=== PATIENT | male | born 1990 | race Caucasian/White ===

== ENCOUNTER 2017-06-23 19:52 | Observation (INO) ==
[2017-06-23] MEDS ORDERED: Ondansetron 4 MG/2 ML VIAL IVP ONE (21:01)
--- NOTE | 2017-06-23 21:07 | Emergency Department Note ---
Disposition Clinical Impression: Right lower quadrant abdominal pain Disposition: Admitted As Inpatient Condition: Good Time of Disposition: 23:45 Abdominal Pain HPI - General Chief Complaint: ED Abdominal Pain Stated Complaint: RUQ pain Time Seen by Provider: 06/23/17 20:48 Source: patient Nursing Notes Reviewed: Yes Vital Signs Reviewed: Yes - History of Present Illness HPI Narrative: 26-year-old male persist emergency department with a complaint of right lower quadrant abdominal pain. Pain started about 24 hours prior to arrival in the mid abdomen and periumbilical region and was associated with several episodes of nausea and vomiting. He did have a subjective fever last evening. No diarrhea. No melena, hematemesis, or hematochezia. No hematuria or dysuria. No increased urinary frequency. No flank pain. No prior abdominal surgeries. The pain has been persistent all day today but has migrated more to the right lower quadrant. Pt Subjective Complaint: abdominal pain Onset (ago): day(s) (1) Consistency: constant, Worsening Location: RLQ Pain Severity: moderate Pain Scale: 4 Quality: aching, dull Radiation: none Migration to: RLQ Improves with: nothing Worsens with: movement Associated symptoms: Reports: nausea, vomiting, fever (Subjective fever last evening but none today.). Denies: diarrhea, chills, constipation, dysuria, hematemesis, hematochezia, melena, hematuria, anorexia, syncope - Related Data Home Medications Medication Instructions Recorded Confirmed No Known Home Drugs 06/23/17 06/23/17 Allergies Allergy/AdvReac Type Severity Reaction Status Date / Time No Known Allergies Allergy Verified 06/23/17 19:54 All systems ED: reviewed and negative except as stated. Constitutional: Reports: fever Cardiovascular: Denies: chest pain Respiratory: Denies: cough, dyspnea Gastrointestinal: Reports: abdominal pain, nausea, vomiting. Denies: diarrhea, constipation, hematemesis, melena, hematochezia Genitourinary: Denies: dysuria, frequency, hematuria Musculoskeletal: Denies: back pain Abdominal Pain PMH - Past Medical History Medical history: Reports: no medical history Male Surgical History: Reports: no surgical history - Social History Smoking status: Current every day smoker Alcohol use: Reports: none Drug use: Reports: none Physical Exam - General Limitations: no limitations General appearance: alert, in no apparent distress - Head Head exam: atraumatic, normocephalic, normal inspection - Eye Eye exam: Present: normal appearance, PERRL, EOMI. Absent: scleral icterus, conjunctival injection - ENT ENT exam: normal exam, normal oropharynx, mucous membranes moist, normal external ear exam - Neck Neck exam: Present: normal inspection, full ROM, trachea midline. Absent: tenderness, meningismus, lymphadenopathy - Chest Chest inspection: Present: normal inspection, symmetric chest wall rise. Absent : tenderness - Respiratory Respiratory exam: Present: normal lung sounds bilaterally. Absent: respiratory distress, wheezes, stridor, accessory muscle use - Cardiovascular Cardiovascular exam: Present: regular rate, normal rhythm, normal heart sounds - Abdominal Exam Abdominal exam: Present: soft, tenderness, guarding, rebound, diminished bowel sounds. Absent: distention, rigidity Abdominal tenderness: Present: RLQ, moderate - Extremities Exam Extremities exam: Present: normal inspection, full ROM. Absent: tenderness, pedal edema - Back Exam Back exam: Present: normal inspection, full ROM. Absent: tenderness, CVA tenderness (R), CVA tenderness (L) - Neurological Exam Neurological exam: Present: alert, oriented X3. Absent: motor sensory deficit - Psychiatric Psychiatric exam: Present: normal affect, normal mood - Skin Skin exam: Present: warm, dry, intact, normal color. Absent: cyanosis, diaphoresis Course Course Narrative: 26-year-old male presents with a 24-hour history of abdominal pain which started in the mid abdomen and periumbilical area and now has migrated to the right lower quadrant. Initially associated with nausea and vomiting which seems to have resolved. No diarrhea. No urinary symptoms. Subjective fever last evening but none today. We will workup for appendicitis with lab work and a CT of abdomen and pelvis with IV contrast. - Consultations Consultation #1: Discussed case with the surgeon crutching contractor, Dr. Oglesby. She will admit the patient for observation. Time: 23:30 Vital Signs Temperature 98.1 F 06/23/17 19:54 Pulse Rate 78 06/23/17 19:54 Respiratory Rate 14 06/23/17 19:54 Blood Pressure 132/87 06/23/17 19:54 O2 Sat by Pulse Oximetry 97 06/23/17 19:54 Temperature 98.1 F 06/23/17 19:54 Pulse Rate 78 06/23/17 19:54 Respiratory Rate 14 06/23/17 19:54 Blood Pressure 132/87 06/23/17 19:54 O2 Sat by Pulse Oximetry 97 06/23/17 19:54 Oxygen Delivery Oxygen Delivery Room Air Abdominal Pain - Lab Data Lab results reviewed: Yes I reviewed the patient's lab results. Result diagrams: 06/23/17 21:34 06/23/17 21:34 Lab Results 06/23/17 06/23/17 06/23/17 Range/Units 21:34 21:34 21:34 WBC 8.9 (4.3-11.1) K/mcL RBC 4.85 (4.19-5.50) M/mcL Hgb 14.6 (12.9-16.9) g/dL Hct 43.6 (37.5-50.1) % MCV 89.9 (83.0-100.0) fL MCH 30.1 (28.0-33.3) pg MCHC 33.5 (31.6-35.5) g/dL RDW 11.7 (11.5-14.5) % Plt Count 248 (140-400) K/mcL MPV 9.3 L (9.4-12.4) fL Immature Gran % 0.2 (0-4) % Seg Neutrophils % 58.5 % Lymphocytes % 29.9 % Monocytes % 8.6 % Eosinophils % 2.1 % Basophils % 0.7 % Neutrophils # 5.2 (1.6-8.9) K/mcL Lymphocytes # 2.7 (0.6-4.6) K/mcL Monocytes # 0.8 (0.0-1.3) K/mcL Eosinophils # 0.2 (0.0-0.6) K/mcL Basophils # 0.1 (0.0-0.2) K/mcL Sodium 141 (136-145) mEq/L Potassium 3.5 (3.5-4.5) mEq/L Chloride 105 (98-109) mEq/L Carbon Dioxide 29 (19-29) mEq/L BUN 10 (8-26) mg/dL Creatinine 1.01 (0.72-1.25) mg/dL Est GFR ( Amer) > 60 (> 60) Est GFR (Non-Af Amer) > 60 (> 60) BUN/Creatinine Ratio 10 (6-26) Glucose 93 (70-99) mg/dL Calculated Osmolality 291 (280-300) Calcium 9.7 (8.6-10.8) mg/dL Total Bilirubin 0.6 (0.2-1.2) mg/dL Direct Bilirubin 0.2 (0.0-0.5) mg/dL Indirect Bilirubin 0.4 (0.0-1.2) mg/dL AST 27 (5-34) Units/L ALT 31 (0-55) Units/L Alkaline Phosphatase 63 (38-126) Units/L Serum Total Protein 7.6 (6.0-8.3) g/dL Albumin 4.3 (3.5-5.0) g/dL Globulin 3.3 (2.4-3.5) g/dL Albumin/Globulin Ratio 1.3 (1.1-2.2) Lipase 22 (8-78) Units/L Urine Color Yellow (Yellow) Urine Clarity Cloudy A (Clear) Urine pH 6.5 (5.0-8.0) pH Units Ur Specific [place] 1.029 H (1.010-1.025) Urine Protein Negative (Neg-Trace) mg/dL Urine Glucose (UA) Normal (Normal) mg/dL Urine Ketones Trace H (Negative) mg/dL Urine Blood Negative (Negative) Urine Nitrite Negative (Negative) Urine Bilirubin Small H (Negative) Urine Urobilinogen 2.0 H (Normal) mg/dL Ur Leukocyte Esterase Negative (Negative) Urine Microscopic RBC 0-3 (0-3) per hpf Urine Microscopic WBC 0-3 (0-3) per hpf Ur Squamous Epith Cells Few (None-Few) per lpf Urine Bacteria None Seen (None-Few) per hpf Hyaline Casts None Seen (None-Few) per lpf Ur Culture Indicated? NO (NO) - Radiology Data Radiology results reviewed: Yes I reviewed the patient's radiology results. Abdomen/Pelvis CT 06/23/17 21:03 IMPRESSION: Appendix mildly dilated without significant surrounding inflammatory change or edema. Early acute appendicitis not excluded given the history. D/ / Shin Aldrich MD / Shin Aldrich MD Interpreting Provider: Shin Aldrich MD
[2017-06-23] MEDS: 0.9 % Sodium Chloride 1,000 ML IVC ONE ×2 (21:13→21:43)
[2017-06-23 21:44] LABS: Basophils # 0.1 K/mcL (0.0-0.2); Basophils % 0.7 %; Eosinophils # 0.2 K/mcL (0.0-0.6); Eosinophils % 2.1 %; Hematocrit 43.6 % (37.5-50.1); Hemoglobin 14.6 g/dL (12.9-16.9); Immature Granulocytes % 0.2 % (0-4); Lymphocytes # 2.7 K/mcL (0.6-4.6); Lymphocytes % 29.9 %; Mean Corpuscular HGB Conc 33.5 g/dL (31.6-35.5); Mean Corpuscular Hemoglobin 30.1 pg (28.0-33.3); Mean Corpuscular Volume 89.9 fL (83.0-100.0); Mean Platelet Volume 9.3 fL (9.4-12.4); Monocytes # 0.8 K/mcL (0.0-1.3); Monocytes % 8.6 %; Neutrophils # 5.2 K/mcL (1.6-8.9); Platelet Count 248 K/mcL (140-400); Red Blood Count 4.85 M/mcL (4.19-5.50); Red Cell Distribution Width 11.7 % (11.5-14.5); Segmented Neutrophils % 58.5 %
[2017-06-23 21:49] LABS: Bilirubin,Urine Small (Negative); Blood,Urine Negative (Negative); Clarity,Urine Cloudy (Clear); Color,Urine Yellow (Yellow); Glucose,Urine (UA) Normal (Normal); Ketones,Urine Trace mg/dL (Negative); Leukocyte Esterase,Urine Negative (Negative); Nitrite,Urine Negative (Negative); PH,Urine 6.5 pH Units (5.0-8.0); Protein,Urine Negative (Neg-Trace); Specific Gravity,Urine 1.029 (1.010-1.025)
[2017-06-23 21:51] LABS: Bacteria,Urine None Seen per hpf (None-Few); Hyaline Casts,Urine None Seen per lpf (None-Few); RBC,Urine 0-3 per hpf (0-3); Squamous Epithelial Cell,Urine Few per lpf (None-Few); WBC,Urine 0-3 per hpf (0-3)
[2017-06-23 21:58] LABS: Alanine Aminotransferase 31 Units/L (0-55); Albumin 4.3 g/dL (3.5-5.0); Albumin/Globulin Ratio 1.3 (1.1-2.2); Alkaline Phosphatase 63 Units/L (38-126); Aspartate Amino Transferase 27 Units/L (5-34); BUN/Creatinine Ratio 10 (6-26); Bilirubin,Direct 0.2 mg/dL (0.0-0.5); Bilirubin,Indirect 0.4 mg/dL (0.0-1.2); Bilirubin,Total 0.6 mg/dL (0.2-1.2); Blood Urea Nitrogen 10 mg/dL (8-26); Calcium 9.7 mg/dL (8.6-10.8); Carbon Dioxide 29 mEq/L (19-29); Chloride 105 mEq/L (98-109); Globulin 3.3 g/dL (2.4-3.5); Glucose 93 mg/dL (70-99); Lipase 22 Units/L (8-78); Osmolality,Calculated 291 (280-300); Potassium 3.5 mEq/L (3.5-4.5); Sodium 141 mEq/L (136-145); Total Protein 7.6 g/dL (6.0-8.3); eGFR For African Americans > 60 (> 60); eGFR For Non-African Americans > 60 (> 60)
[2017-06-23] MEDS ORDERED: *HR* Promethazine 25 MG/ML VIAL IVP PRN (23:38)
[2017-06-23] MEDS ORDERED: Naloxone 0.4 MG/ML INJ IVP PRN (23:38)
[2017-06-23] MEDS ORDERED: Ketorolac 15 MG/ML VIAL IVP PRN (23:38)
[2017-06-23] MEDS ORDERED: Ondansetron 4 MG/2 ML VIAL IVP PRN (23:38)
[2017-06-23] MEDS ORDERED: 0.9 % Sodium Chloride 1,000 ML IVC SCH (23:45)
[2017-06-24 05:47] LABS: Basophils # 0.1 K/mcL (0.0-0.2); Basophils % 0.7 %; Eosinophils # 0.2 K/mcL (0.0-0.6); Eosinophils % 3.1 %; Hematocrit 40.9 % (37.5-50.1); Immature Granulocytes % 0.3 % (0-4); Lymphocytes # 3.1 K/mcL (0.6-4.6); Lymphocytes % 45.8 %; Mean Corpuscular HGB Conc 34.2 g/dL (31.6-35.5); Mean Corpuscular Hemoglobin 31.2 pg (28.0-33.3); Mean Corpuscular Volume 91.1 fL (83.0-100.0); Mean Platelet Volume 9.6 fL (9.4-12.4); Monocytes # 0.7 K/mcL (0.0-1.3); Monocytes % 10.4 %; Neutrophils # 2.7 K/mcL (1.6-8.9); Platelet Count 216 K/mcL (140-400); Red Blood Count 4.49 M/mcL (4.19-5.50); Red Cell Distribution Width 11.7 % (11.5-14.5); Segmented Neutrophils % 39.7 %
[2017-06-24 05:57] LABS: BUN/Creatinine Ratio 12 (6-26); Blood Urea Nitrogen 10 mg/dL (8-26); Calcium 8.9 mg/dL (8.6-10.8); Carbon Dioxide 26 mEq/L (19-29); Chloride 109 mEq/L (98-109); Glucose 97 mg/dL (70-99); Osmolality,Calculated 291 (280-300); Potassium 4.1 mEq/L (3.5-4.5); Sodium 141 mEq/L (136-145); eGFR For African Americans > 60 (> 60); eGFR For Non-African Americans > 60 (> 60)
--- NOTE | 2017-06-24 10:07 | General Surg History&Physical ---
<Deanne Peña - Last Filed: 06/24/17 10:03> Date of Encounter: 06/24/17 Time of Encounter: 09:15 Assessment and Plan (1) Right lower quadrant abdominal pain Status: Acute The assessment and plan as outlined above was discussed with the patient and/or family members who expressed understanding and agreement. All questions were answered. NPO IV fluids Supportive care/pain control Serial abdominal exams and observation (2) Tobacco abuse Status: Acute The assessment and plan as outlined above was discussed with the patient and/or family members who expressed understanding and agreement. All questions were answered. Smoking cessation education Nicotine patch (3) DVT prophylaxis Status: Acute The assessment and plan as outlined above was discussed with the patient and/or family members who expressed understanding and agreement. All questions were answered. Ambulate hallways TID History of Present Illness Chief complaint: Right sided abdominal pain HPI: Mr. Samuel is a 26 year old male who presented to the hospital last evening with a 24-hour history of right-sided abdominal discomfort. He states that the pain started after having dinner on Friday evening. He reports that initially was a pain across his entire abdomen but over time the pain has settled in the right side. He reports that it was initially sharp and stabbing pain but now is more of a dull aching pain. He denies any aggravating or alleviating factors. He has never experienced pain like this in the past. He admits to nausea and dry heaves. He has a poor appetite. He states that he has his last bowel movement on Friday and that it was normal. Denies any hematemesis, coffee -ground emesis, melena or hematochezia. He admits to chills but denies any fevers. Denies any shortness of breath or chest pain. Denies any difficulty with urination. Past Med Surg Social Fam HX - Past Medical History Source: patient, old records reviewed Medical history: other (seasonal allergies) Psychiatric history: no psych history - Past Surgical History Surgical History: other (Tonsillectomy and adenoidectomy, ear tubes as a child) - Social History Smoking Status: Current every day smoker Packs per day: 2 Smokeless Tobacco Status: No Alcohol use: none Drug use: none Current living situation: Home - Independent Activity Level: Independent ambulation - Family History Mother Living Status: Still Living Hx Family Cardiac Disorders: Yes ([place]) Father History Unknown: Yes Medications and Allergies Loratadine [Allergy Relief] 10 mg PO DAILY 06/24/17 [History] Allergies No Known Allergies Allergy (Verified 06/23/17 19:54) Review of Systems All systems PM: reviewed and no additional remarkable complaints except as stated (in the HPI) All systems PM: A 10-system review of systems was performed and is negative for pertinent findings except as documented above in the HPI. General Surgery Exam Initial Vital Signs Temp Pulse Resp BP Pulse Ox 98.1 F 78 14 132/87 97 06/23/17 19:54 06/23/17 19:54 06/23/17 19:54 06/23/17 19:54 06/23/17 19:54 - General physical appearance well developed, well nourished, no distress - Eyes normal ocular movement - ENT normal mucosa, atraumatic, normocephalic - Neck trachea midline - Respiratory normal respiratory effort, clear to auscultation - Cardiovascular Cardiovascular exam: Present: RRR - Abdomen Abdomen general surgery: Present: bowel sounds present, soft, tender Abdominal Tenderness: Present: RLQ, suprapubic - Integumentary Integumentary general surgery: Present: warm and dry - Neurologic Present: CN 2-12 grossly intact - Psychiatric Psychiatric general surgery: Present: appropriate, oriented to person, oriented to place, oriented to time, speech is normal, memory intact Results - Labs 06/24/17 05:23 06/24/17 05:23 Abnormal lab results POC Glucose 93 (58-89) H 06/24/17 05:20 Urine Clarity Cloudy (Clear) A 06/23/17 21:34 Ur Specific [place] 1.029 (1.010-1.025) H 06/23/17 21:34 Urine Ketones Trace mg/dL (Negative) H 06/23/17 21:34 Urine Bilirubin Small (Negative) H 06/23/17 21:34 Urine Urobilinogen 2.0 mg/dL (Normal) H 06/23/17 21:34 Diabetes panel 06/24/17 Range/Units 05:23 Sodium 141 (136-145) mEq/L Potassium 4.1 (3.5-4.5) mEq/L Chloride 109 (98-109) mEq/L Carbon Dioxide 26 (19-29) mEq/L BUN 10 (8-26) mg/dL Creatinine 0.83 (0.72-1.25) mg/dL Glucose 97 (70-99) mg/dL Calcium 8.9 (8.6-10.8) mg/dL Calcium panel 06/24/17 Range/Units 05:23 Calcium 8.9 (8.6-10.8) mg/dL Pituitary panel 06/24/17 Range/Units 05:23 Sodium 141 (136-145) mEq/L Potassium 4.1 (3.5-4.5) mEq/L Chloride 109 (98-109) mEq/L Carbon Dioxide 26 (19-29) mEq/L BUN 10 (8-26) mg/dL Creatinine 0.83 (0.72-1.25) mg/dL Glucose 97 (70-99) mg/dL Calcium 8.9 (8.6-10.8) mg/dL Adrenal panel 06/24/17 Range/Units 05:23 Sodium 141 (136-145) mEq/L Potassium 4.1 (3.5-4.5) mEq/L Chloride 109 (98-109) mEq/L Carbon Dioxide 26 (19-29) mEq/L BUN 10 (8-26) mg/dL Creatinine 0.83 (0.72-1.25) mg/dL Glucose 97 (70-99) mg/dL Calcium 8.9 (8.6-10.8) mg/dL All other labs normal. - Imaging CT scan - abdomen: report reviewed CT scan - pelvis: report reviewed Additional studies: Abdomen/Pelvis CT 06/23/17 21:03 IMPRESSION: Appendix mildly dilated without significant surrounding inflammatory change or edema. Early acute appendicitis not excluded given the history. D/ / Shin Aldrich MD / Shin Aldrich MD Interpreting Provider: Shin Aldrich MD <Marti Oglesby - Last Filed: 06/24/17 16:55> Date of Encounter: 06/24/17 History of Present Illness HPI: Mr. Samuel is a 26 year old male Review of Systems All systems PM: A 10-system review of systems was performed and is negative for pertinent findings except as documented above in the HPI. General Surgery Exam Initial Vital Signs Temp Pulse Resp BP Pulse Ox 98.1 F 78 14 132/87 97 06/23/17 19:54 06/23/17 19:54 06/23/17 19:54 06/23/17 19:54 06/23/17 19:54 Results - Labs 06/24/17 05:23 06/24/17 05:23 Abnormal lab results POC Glucose 90 (58-89) H 06/24/17 11:54 Urine Clarity Cloudy (Clear) A 06/23/17 21:34 Ur Specific [place] 1.029 (1.010-1.025) H 06/23/17 21:34 Urine Ketones Trace mg/dL (Negative) H 06/23/17 21:34 Urine Bilirubin Small (Negative) H 06/23/17 21:34 Urine Urobilinogen 2.0 mg/dL (Normal) H 06/23/17 21:34 Diabetes panel 06/24/17 Range/Units 05:23 Sodium 141 (136-145) mEq/L Potassium 4.1 (3.5-4.5) mEq/L Chloride 109 (98-109) mEq/L Carbon Dioxide 26 (19-29) mEq/L BUN 10 (8-26) mg/dL Creatinine 0.83 (0.72-1.25) mg/dL Glucose 97 (70-99) mg/dL Calcium 8.9 (8.6-10.8) mg/dL Calcium panel 06/24/17 Range/Units 05:23 Calcium 8.9 (8.6-10.8) mg/dL Pituitary panel 06/24/17 Range/Units 05:23 Sodium 141 (136-145) mEq/L Potassium 4.1 (3.5-4.5) mEq/L Chloride 109 (98-109) mEq/L Carbon Dioxide 26 (19-29) mEq/L BUN 10 (8-26) mg/dL Creatinine 0.83 (0.72-1.25) mg/dL Glucose 97 (70-99) mg/dL Calcium 8.9 (8.6-10.8) mg/dL Adrenal panel 06/24/17 Range/Units 05:23 Sodium 141 (136-145) mEq/L Potassium 4.1 (3.5-4.5) mEq/L Chloride 109 (98-109) mEq/L Carbon Dioxide 26 (19-29) mEq/L BUN 10 (8-26) mg/dL Creatinine 0.83 (0.72-1.25) mg/dL Glucose 97 (70-99) mg/dL Calcium 8.9 (8.6-10.8) mg/dL All other labs normal. - Attending Attestation patient was admitted overnight he was seen by HOME SERVICE TECHNICIAN Elise Peña independently, we discussed his care on the phone but I did not personally see this patient.
[2017-06-24 10:45] VITALS: BP 112/67
--- NOTE | 2017-06-24 13:32 | Discharge Summary ---
Date of Encounter: 06/24/17 Time of Encounter: 13:30 - Discharge Diagnosis (1) Right lower quadrant abdominal pain Priority: Primary Status: Resolved (2) Tobacco abuse Priority: Secondary Status: Chronic - Discharge Medications Home Medications: Loratadine [Allergy Relief] 10 mg PO DAILY 06/24/17 [History] Allergies/Adverse Reactions: Allergies No Known Allergies Allergy (Verified 06/23/17 19:54) General Surgery Exam Initial Vital Signs Temp Pulse Resp BP Pulse Ox 98.1 F 78 14 132/87 97 06/23/17 19:54 06/23/17 19:54 06/23/17 19:54 06/23/17 19:54 06/23/17 19:54 - General physical appearance well developed, well nourished, no distress, no pain - Eyes normal ocular movement - ENT normal mucosa, atraumatic, normocephalic - Neck trachea midline - Respiratory normal respiratory effort, clear to auscultation - Cardiovascular Cardiovascular exam: Present: RRR - Abdomen Abdomen general surgery: Present: bowel sounds present, soft, tender (minimal RLQ (significantly improved)) - Integumentary Integumentary general surgery: Present: warm and dry - Neurologic Present: CN 2-12 grossly intact - Musculoskeletal Present: normal gait, normal posture - Psychiatric Psychiatric general surgery: Present: appropriate, oriented to person, oriented to place, oriented to time, speech is normal, memory intact Date of admission: 06/23/17 23:54 Primary care physician: DAISY SNEED Discharging clinician: Deanne Peña Anticipated date of discharge: 06/24/17 - Patient Status Disposition: Home, Self-Care Condition: Good Overall status at discharge: patient is back to baseline - Discharge Instructions Follow Up With: NO,PCP [Primary Care Provider] - Marti Oglesby MD [Partnered Physician] - (as needed; no scheduled follow- up necessary) Forms: Work/School Release - Diet and Activity Activity: increase activity as tolerated Diet: advance to your usual diet - Hospital Course Hospital course: Mr. Samuel is a 26 year old male presented to the hospital with abdominal pain with associated nausea and vomiting. He was admitted to the hospital and treated with supportive measures including bowel rest and IV fluids. His symptoms have resolved with these conservative measures. He has been given a regular diet and tolerated this without nausea or vomiting. His vital signs are stable and he is afebrile. His laboratory values remained within normal limits. We will begin discharge planning and plan for outpatient follow-up on an as-needed basis. - Time Spent with Patient Total time spent providing and/or coordinating discharge services: Less than 30 minutes Labs on day of discharge: Labs from last 24 hours 06/24/17 06/24/17 06/24/17 11:54 05:23 05:23 WBC 6.8 RBC 4.49 Hgb 14.0 Hct 40.9 MCV 91.1 MCH 31.2 MCHC 34.2 RDW 11.7 Plt Count 216 MPV 9.6 Immature Gran % 0.3 Seg Neutrophils % 39.7 Lymphocytes % 45.8 Monocytes % 10.4 Eosinophils % 3.1 Basophils % 0.7 Neutrophils # 2.7 Lymphocytes # 3.1 Monocytes # 0.7 Eosinophils # 0.2 Basophils # 0.1 Sodium 141 Potassium 4.1 Chloride 109 Carbon Dioxide 26 BUN 10 Creatinine 0.83 Est GFR ( Amer) > 60 Est GFR (Non-Af Amer) > 60 BUN/Creatinine Ratio 12 Glucose 97 POC Glucose 90 H Calculated Osmolality 291 Calcium 8.9 06/24/17 05:20 WBC RBC Hgb Hct MCV MCH MCHC RDW Plt Count MPV Immature Gran % Seg Neutrophils % Lymphocytes % Monocytes % Eosinophils % Basophils % Neutrophils # Lymphocytes # Monocytes # Eosinophils # Basophils # Sodium Potassium Chloride Carbon Dioxide BUN Creatinine Est GFR ( Amer) Est GFR (Non-Af Amer) BUN/Creatinine Ratio Glucose POC Glucose 93 H Calculated Osmolality Calcium
== END 2017-06-24 14:26 | disposition home or self-care (01) ==
LOC: EMEROO 19:52 → 3ANU 19:52
PROVIDERS: ADMIT Surgery; ATTEND Surgery

== ENCOUNTER 2017-10-13 19:00 | Observation (INO) ==
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
[2017-10-13 19:38] LABS: Bilirubin,Urine Small (Negative); Blood,Urine Negative (Negative); Clarity,Urine Clear (Clear); Color,Urine Dark Yellow (Yellow); Glucose,Urine (UA) Normal (Normal); Ketones,Urine 40 mg/dL (Negative); Leukocyte Esterase,Urine Negative (Negative); Nitrite,Urine Negative (Negative); Protein,Urine 30 mg/dL (Neg-Trace); Specific Gravity,Urine > 1.030 (1.010-1.025); Urobilinogen,Urine Normal (Normal)
[2017-10-13 19:41] LABS: Bacteria,Urine None Seen per hpf (None-Few); Hyaline Casts,Urine None Seen per lpf (None-Few); Squamous Epithelial Cell,Urine Many per lpf (None-Few); WBC,Urine 0-3 per hpf (0-3)
[2017-10-13 19:44] LABS: Amphetamine Screen,Urine Negative ng/mL (Cutoff=1000); Barbiturate Screen,Urine Negative ng/mL (Cutoff=200); Benzodiazepines Screen,Urine Negative ng/mL (Cutoff=200); Cannabinoid Screen,Urine Negative ng/mL (Cutoff = 50); Cocaine Screen,Urine Negative ng/mL (Cutoff= 300); Opiate Screen,Urine Negative ng/mL (Cutoff=300); Phencyclidine Screen,Urine Negative ng/mL (Cutoff=25)
[2017-10-13 19:53] LABS: Basophils % 0.4 %; Eosinophils % 0.2 %; Hematocrit 42.9 % (37.5-50.1); Hemoglobin 14.9 g/dL (12.9-16.9); Immature Granulocytes % 0.1 % (0-4); Lymphocytes # 2.7 K/mcL (0.6-4.6); Lymphocytes % 28.4 %; Mean Corpuscular HGB Conc 34.7 g/dL (31.6-35.5); Mean Corpuscular Hemoglobin 30.4 pg (28.0-33.3); Mean Corpuscular Volume 87.6 fL (83.0-100.0); Mean Platelet Volume 9.1 fL (9.4-12.4); Monocytes # 0.4 K/mcL (0.0-1.3); Monocytes % 4.2 %; Neutrophils # 6.3 K/mcL (1.6-8.9); Platelet Count 292 K/mcL (140-400); Red Cell Distribution Width 11.4 % (11.5-14.5); Segmented Neutrophils % 66.7 %
[2017-10-13 20:08] LABS: Acetaminophen < 1.0 mcg/mL (10-30); BUN/Creatinine Ratio 14 (6-26); Blood Urea Nitrogen 14 mg/dL (8-26); Calcium 9.9 mg/dL (8.6-10.8); Carbon Dioxide 24 mEq/L (19-29); Chloride 104 mEq/L (98-109); Ethanol < 10 mg/dL (0-10); Glucose 108 mg/dL (70-99); Osmolality,Calculated 289 (280-300); Potassium 3.5 mEq/L (3.5-4.5); Salicylate < 5.0 mg/dL (15-30); Sodium 139 mEq/L (136-145); eGFR For African Americans > 60 (> 60); eGFR For Non-African Americans > 60 (> 60)
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
--- NOTE | 2017-10-13 23:26 | Emergency Department Note ---
START Narrative - START START: accepted sign out from Dr. Bustillo we are waiting for 1A reccomendation and will follow through with their plan.
[2017-10-14] MEDS ORDERED: Acetaminophen 325 MG TABLET PO PRN (00:26)
[2017-10-14] MEDS ORDERED: *HR* LORazepam 2 MG/ML VIAL IM PRN (00:26)
[2017-10-14] MEDS ORDERED: hydrOXYzine pamoate 25 MG CAPSULE PO PRN (00:26)
[2017-10-14] MEDS ORDERED: Haloperidol Lactate 5 MG/ML VIAL IM PRN (00:26)
[2017-10-14] MEDS ORDERED: Ibuprofen 400 MG TABLET PO PRN (00:26)
[2017-10-14] MEDS ORDERED: Mag Hydrox/Al Hydrox/Simeth 30 ML UDC PO PRN (00:26)
[2017-10-14] MEDS ORDERED: MOM Conc 10 ML UD.LIQ PO PRN (00:26)
[2017-10-14] MEDS ORDERED: *HR* LORazepam 1 MG TABLET PO PRN (00:26)
[2017-10-14] MEDS ORDERED: traZODone 50 MG TABLET PO PRN (00:26)
[2017-10-14 09:41] VITALS: BP 108/71
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
== END 2017-10-14 12:47 | disposition home or self-care (01) ==
LOC: EMEROO 19:00 → 1ANU 19:00
PROVIDERS: ADMIT Student in an Organized Health Care Education/Training Program; ATTEND Student in an Organized Health Care Education/Training Program